=== PATIENT | female | born 1995 | race Caucasian/White ===

== ENCOUNTER 2017-11-27 09:49 | Inpatient (IN) | payer OTHER ==
[~2017-11-27] VITALS: Ht 162.6 cm; Wt 92.5 kg
[2017-11-27] MEDS ORDERED: PRENATAL TABLE1 EAC2 PO (10:50)
[2017-11-27 11:47] LABS: ABSOLUTE BASOPHIL COUNT 0.1 /CUMM (0.0-0.2); ABSOLUTE EOSINOPHIL COUNT 0.2 /CUMM (0.0-0.7); ABSOLUTE GRANULOCYTE CT 5.6 /CUMM (1.4-6.5); ABSOLUTE LYMPH COUNT 1.7 /CUMM (1.2-3.4); ABSOLUTE MONOCYTE COUNT 0.6 /CUMM (0.10-0.60); BASOPHIL % 0.7 % (0.0-2.0); EOSINOPHIL % 2.2 % (0-5); HEMATOCRIT 28.6 % (37-47); MEAN CORPUSCULAR HGB CONC 32.9 G/DL (33.0-37.0); MEAN CORPUSCULAR VOLUME 85.1 FL (81.0-99.0); MEAN PLATELET VOLUME 11.3 FL (7.4-10.4); PLATELET COUNT 147 /CUMM (130-400); RBC DISTRIBUTION WIDTH 15.5 % (11.5-14.5); RED BLOOD CELL CT 3.36 /CUMM (4.20-5.40); WHITE BLOOD CELL COUNT 8.1 /CUMM (4.8-10.8)
--- NOTE | 2017-11-27 19:01 | History & Physical Pre-Op ---
General Information and HPI History of Present Illness: 22yo G1 LMP 02/26/17 EDC 12/03/17 at 39w4d presents for IOL trial of labor. care is remarkable for macrosomia EFW 9lb9oz on 11/19/18 with high risk shouder dystocia. Allergies/Medications Allergies: Coded Allergies: No Known Allergies (11/27/17) Home Med list Vit No.130/Iron/FA ( Tablet) 27 MG IRON-800 MCG TABLET 1 TAB PO DAILY (Reported) Past History Surgical History Pertinent Surgical History: none Past Family/Social History Psychosocial History Smoking Status: Never Smoked Review of Systems Review of Systems Constitutional: Reports: no symptoms. EENTM: Reports: no symptoms. Cardiovascular: Reports: no symptoms. Respiratory: Reports: no symptoms. GI: Reports: no symptoms. Genitourinary: Reports: no symptoms. Musculoskeletal: Reports: no symptoms. Skin: Reports: no symptoms. Neurological/Psychological: Reports: no symptoms. Hematologic/Endocrine: Reports: no symptoms. Immunologic/Allergic: Reports: no symptoms. All Other Systems: Reviewed and Negative Exam & Diagnostic Data Last 24 Hrs of Vital Signs/I&O Intake & Output 11/27 1600 11/27 0800 11/27 0000 Intake Total Output Total Balance Patient 204 lb Weight Physical Exam: chest CTA CV nl S1S2 Abd: gravid, cephalic, EFW 10 Cx: LTCP Ext no c/c/e Assessment/Plan Assessment/Plan: macrosomia at 39 weeks poor Higginbotham score Cervical ripening with stratton and miso As Ranked By This Provider Problem List: 1. Macrosomia
--- NOTE | 2017-11-28 08:05 | PN- Obstetrical ---
Subjective Subjective: no c/o Review of Systems: stratton out overnight after 12 hours Objective Last 24 Hrs of Vital Signs/I&O vss afebrile Physical Exam: Cx: FT/ long, soft, post, -3 Obstetric Exam Dilation (cm): 1 Effacement (%): 0 Station: -3 Membranes: intact Fluid: unknown Multiple Gestation? No Contractions: occ Assessment/Plan Assessment/Plan macrosomia pitocin induction of labor Problem List: 1. Macrosomia
--- NOTE | 2017-11-28 20:08 | PN- Obstetrical ---
Subjective Subjective: comfortable after epidural Review of Systems: neg Objective Last 24 Hrs of Vital Signs/I&O vss Physical Exam: Cx: 5cm/100/-2 Obstetric Exam Dilation (cm): 5 Effacement (%): 100 Station: -2 Membranes: SROM Fluid: clear Multiple Gestation? No Contractions: q2 Assessment/Plan Assessment/Plan macrosomia pitocin IOL CPM Problem List: 1. Macrosomia
--- NOTE | 2017-11-29 03:03 | PN- Obstetrical ---
Subjective Subjective: no c/o Review of Systems: neg Objective Last 24 Hrs of Vital Signs/I&O vss Physical Exam: Cx 8.5/90/-2 Obstetric Exam Dilation (cm): 89 Effacement (%): 90 Station: -2 Membranes: SROM Fluid: clear Multiple Gestation? No Contractions: q2-3 Assessment/Plan Assessment/Plan IOL if no change at next check will proceed to C/S Problem List: 1. Macrosomia
--- NOTE | 2017-11-29 05:34 | History & Physical Pre-Op ---
General Information and HPI History of Present Illness: The patient is a 22-year-old 1 para 0 at 39 weeks and 5 days who presents in her second day of induction secondary to macrosomia and arrest of dilatation now for primary . She has now been 8 and half centimeters for approximately 6 hours on the maximum dose dose of Pitocin; contractions have been adequate by palpation. Allergies/Medications Allergies: Coded Allergies: No Known Allergies (11/27/17) Home Med list Vit No.130/Iron/FA ( Tablet) 27 MG IRON-800 MCG TABLET 1 TAB PO DAILY (Reported) Past History Surgical History Pertinent Surgical History: none Past Family/Social History Psychosocial History Smoking Status: Never Smoked Review of Systems Review of Systems Constitutional: Reports: fever. Denies: chills. EENTM: Reports: no symptoms. Cardiovascular: Reports: no symptoms. Respiratory: Reports: no symptoms. GI: Reports: no symptoms. Genitourinary: Reports: no symptoms. Musculoskeletal: Reports: no symptoms. Skin: Reports: no symptoms. Neurological/Psychological: Reports: no symptoms. Hematologic/Endocrine: Reports: no symptoms. Immunologic/Allergic: Reports: no symptoms. All Other Systems: Reviewed and Negative Exam & Diagnostic Data Last 24 Hrs of Vital Signs/I&O 100.9 Physical Exam: HEENT: Normocephalic atraumatic Chest: Clear to auscultation Cardiovascular: Normal S1-S2 Abdomen: Gravid, cephalic estimated weight 10 pounds Cervix: 8.5 cm 90% -2 station Extremities: No clubbing cyanosis or edema Assessment/Plan Assessment/Plan: Arrest of dilatation Plan: Primary section As Ranked By This Provider Problem List: 1. Macrosomia
--- NOTE | 2017-11-29 05:37 | PN- Obstetrical ---
Subjective Subjective: No complaint Review of Systems: Negative Objective Last 24 Hrs of Vital Signs/I&O Temperature 100.9 Physical Exam: Cervix: 8.590-2 Obstetric Exam Dilation (cm): 89 Effacement (%): 90 Station: -2 Membranes: AROM Fluid: clear Multiple Gestation? No Contractions: 2 Assessment/Plan Assessment/Plan Arrest of dilatation Plan: Primary Problem List: 1. Macrosomia
[2017-11-30 10:04] LABS: ABSOLUTE BASOPHIL COUNT 0 /CUMM (0.0-0.2); ABSOLUTE EOSINOPHIL COUNT 0.1 /CUMM (0.0-0.7); ABSOLUTE GRANULOCYTE CT 9.8 /CUMM (1.4-6.5); ABSOLUTE LYMPH COUNT 1.7 /CUMM (1.2-3.4); BASOPHIL % 0.3 % (0.0-2.0); EOSINOPHIL % 1.2 % (0-5); GRANULOCYTE % 77.7 % (42.2-75.2); HEMATOCRIT 24.1 % (37-47); MEAN CORPUSCULAR HGB CONC 33.5 G/DL (33.0-37.0); MEAN CORPUSCULAR VOLUME 83.6 FL (81.0-99.0); MEAN PLATELET VOLUME 10.9 FL (7.4-10.4); PLATELET COUNT 147 /CUMM (130-400); RED BLOOD CELL CT 2.88 /CUMM (4.20-5.40)
[2017-11-30 10:19] LABS: WHITE BLOOD CELL COUNT 12.6 /CUMM (4.8-10.8)
--- NOTE | 2017-12-01 09:00 | PN- Post Delivery/GYN ---
Subjective Subjective: NO C/O Review of Systems: JNEG Objective Last 24 Hrs of Vital Signs/I&O VSS Physical Exam: INCISION C/D/I EXT NT Assessment/Plan Assessment/Plan S/P C/S POD2 CIRC DISCHARGE TOMORRROW Problem List: 1. Macrosomia
[2017-12-01] MEDS ORDERED: IBUPROFEN800 M1 PO (09:02)
[2017-12-01] MEDS ORDERED: PERCOCET 5-3251 EACH PO (09:02)
[2017-12-01] MEDS ORDERED: DOCUSATE SODIU100 M3 PO (09:02)
--- NOTE | 2017-12-02 10:29 | PN- Post Delivery/GYN ---
Subjective Subjective: no c/o Review of Systems: neg Objective Last 24 Hrs of Vital Signs/I&O vss Physical Exam: incision c/d/i ext nt Assessment/Plan Assessment/Plan s/p c/s pod3 discharge home Problem List: 1.
== END 2017-12-02 11:45 | DRG 766 ==
LOC: GNO 09:49
PROVIDERS: Obstetrics & Gynecology
PROC: 3E033VJ Introduction of Other Hormone into Peripheral Vein, Percutaneous Approach (ICD-10-PCS; principal; 2017-11-29)
PROC: 10907ZC Drainage of Amniotic Fluid, Therapeutic from Products of Conception, Via Natural or Artificial Opening (ICD-10-PCS; principal; 2017-11-29)
PROC: 10D00Z1 Extraction of Products of Conception, Low, Open Approach (ICD-10-PCS; principal; 2017-11-29)
DX: O36.63X0 Maternal care for excessive fetal growth, third trimester, not applicable or unspecified (principal); Z3A.39 39 weeks gestation of pregnancy; Z37.0 Single live birth; O62.1 Secondary uterine inertia
CPT/HCPCS: GNOP; GNOS; 81001; 84112; 87086; J0131; J0690; J1170; J1200; J1650; J1885; J2765; J7120